=== PATIENT | female | born 1995 ===

== ENCOUNTER 2018-06-11 10:25 | Emergency (ER) | payer OTHER ==
--- NOTE | 2018-06-11 10:30 | UC ---
Abdominal Pain Female HPI - HPI Summary HPI Summary: 22 yo female presents with abdominal pain. She tells me that for the last 4 days she has been having periumbilical pain that is random and intermittent. She tells me that [facility] and had a pevlic exam by an [employer] there and was told that it could be an ovarian cyst as she was tender in the RLQ and tender on right ovary during the bimanual. Pt has never had an ovarian cyst, but her mother has. [facility] scheduled her an US for early June, but pt is here looking to have this performed sooner as she is still in discomfort. LMP was 2 weeks ago and normal for her. Has a BM daily. Denies fever, chills, SOB, chest pain, n/v/d/c, dysuria, vaginal bleeding or discharge. - History of Current Complaint Stated Complaint: ABD PAIN Time Seen by Provider: 06/11/18 10:30 Hx Obtained From: Patient Onset/Duration: Sudden Onset Severity Initially: Moderate Severity Currently: Moderate Pain Intensity: 7 Pain Scale Used: 0-10 Numeric Allergies/Adverse Reactions: Allergies Allergy/AdvReac Type Severity Reaction Status Date / Time No Known Allergies Allergy Verified 06/11/18 10:34 Home Medications: Home Medications NK [No Home Medications Reported] 06/11/18 [History Confirmed 06/11/18] PMH/Surg Hx/FS Hx/Imm Hx - Additional Past Medical History Additional PMH: None - Surgical History Surgical History: None - Family History Known Family History: Positive: None - Social History Occupation: Student Lives: Dormitory/Roommates Alcohol Use: Occasionally Substance Use Type: None Smoking Status (MU): Never Smoked Tobacco Review of Systems All Other Systems Reviewed And Are Negative: Yes Constitutional: Positive: Negative Skin: Positive: Negative Respiratory: Positive: Negative Cardiovascular: Positive: Negative Gastrointestinal: Positive: Abdominal Pain Genitourinary: Positive: Negative Neurovascular: Positive: Negative Neurological: Positive: Negative Psychological: Positive: Negative Physical Exam - Summary Physical Exam Summary: GENERAL: NAD. WDWN. No pain distress. SKIN: No rashes, sores, lesions, or open wounds. NECK: Supple. Nontender. No lymphadenopathy. CHEST: CTAB. No r/r/w. No accessory muscle use. Breathing comfortably and in no distress. CV: RRR. Without m/r/g. Pulses intact. Cap refill <2seconds ABDOMEN: Mild TTP RLQ. No rebound. Negative Rovsing's, psoas, obturator. Soft. No distention or guarding. No CVA tenderness. Bowel sounds present NEURO: Alert. PSYCH: Age appropriate behavior. Triage Information Reviewed: Yes Vital Signs: Vital Signs: Temp Pulse Resp BP Pulse Ox 97.8 F 80 18 103/68 100 06/11/18 10:30 06/11/18 10:30 06/11/18 10:30 06/11/18 10:30 06/11/18 10:30 Laboratory Tests 06/11/18 06/11/18 10:59 11:01 POC Urine Color Yellow POC Urine Clarity Clear POC Urine pH 6.5 POC Ur Specif [place] 1.025 POC Urine Protein Negative POC Ur Glucose (UA) Negative POC Urine Ketones Negative POC Urine Blood 2+ A POC Urine Nitrite Negative POC Urine Bilirubin Negative POC Urine Urobilinogen 0.2 POC U Leukocyte Esteras 1+ A POC Ur Test Negative Vital Signs Reviewed: Yes Abd Pain Female Course/Dx - Course Course Of Treatment: US: IMPRESSION: 2.1 CM RIGHT OVARIAN CYST. NO SONOGRAPHIC FEATURES OF TORSION. PLEASE NOTE THAT PARTIAL OR. INTERMITTENT TORSION MAY BE SONOGRAPHICALLY NORMAL. UA with leuks, but she is having no urinary symptoms. Will await culture and treat if positive. Discussed results with pt and advised to monitor, take NSAIDs, and apply heat pack to RLQ for comfort. F/u with [facility] as scheduled. If symptoms worsen to go to the ED. - Differential Dx/Diagnosis Provider Diagnosis: Ovarian cyst Discharge - Sign-Out/Discharge Documenting (check all that apply): Patient Departure All imaging exams completed and their final reports reviewed: Yes - Discharge Plan Condition: Stable Disposition: HOME Patient Education Materials: Ovarian Cyst (ED) Referrals: No Primary Care Phys,NOPCP [Primary Care Provider] - Additional Instructions: If you develop a fever, shortness of breath, chest pain, new or worsening symptoms - please call your PCP or go to the ED. 1) May take ibuprofen 600mg every 6-8 hours as needed for pain 2) Apply a heat pack to reduce discomfort 3) If your symptoms worsen - please be rechecked - Billing Disposition and Condition Condition: STABLE Disposition: Home
[2018-06-11 10:33] VITALS: BP 103/68
== END 2018-06-11 12:02 | disposition home or self-care (01) ==
LOC: UCEAST 10:25
DX: N83.201 Unspecified ovarian cyst, right side (principal)
CPT/HCPCS: 76830; 81003; 84702; 99201; G0463